=== PATIENT | male | born 1975 | race Two or more races ===

== ENCOUNTER 2017-03-03 09:36 | Emergency (ER) | payer OTHER ==
[~2017-03-03] VITALS: Ht 167.6 cm; Wt 81.6 kg
[2017-03-03] MEDS ORDERED: GABAPENTIN100 MG ORAL (09:49)
[2017-03-03 10:09] VITALS: BP 115/80
[2017-03-03 10:17] LABS: BASOPHILS % (AUTO) 1.1 % (0.0-2.0); EOSINOPHILS % (AUTO) 1.2 % (0.0-3.0); LYMPHOCYTES % (AUTO) 36.1 % (20.0-45.0); MEAN CORPUSCULAR HEMOGLOBIN 34.7 PG (27.0-31.0); MEAN CORPUSCULAR HGB CONC 33.8 G/DL (32.0-36.0); MEAN CORPUSCULAR VOLUME 103 FL (80-99); MEAN PLATELET VOLUME 6.7 FL (6.5-10.1); MONOCYTES % (AUTO) 12.4 % (1.0-10.0); NEUTROPHILS % (AUTO) 49.2 % (45.0-75.0); PLATELET COUNT 138 K/UL (150-450); RED BLOOD COUNT 4.25 M/UL (4.70-6.10); RED CELL DISTRIBUTION WIDTH 11.3 % (11.6-14.8); WHITE BLOOD COUNT 4.9 K/UL (4.8-10.8)
[2017-03-03 10:24] LABS: ACETAMINOPHEN < 10 ug/mL (10-30); ALANINE AMINOTRANSFERASE 48 U/L (3-41); ALBUMIN/GLOBULIN RATIO 1.3 (1.0-2.7); ANION GAP 11 (5-15); ASPARTATE AMINO TRANSFERASE 72 U/L (5-40); CALCIUM 8.8 mg/dL (8.6-10.2); CARBON DIOXIDE 28 mEQ/L (20-30); CHLORIDE 103 mEQ/L (98-107); CREATININE 0.7 mg/dL (0.7-1.2); GLOMERULAR FILTRATION RATE > 60 mL/min (>60); HEMOLYSIS 130; POTASSIUM 4.5 mEQ/L (3.4-4.9); SODIUM 142 mEQ/L (135-145); TOTAL PROTEIN 7.5 g/dL (6.6-8.7)
--- NOTE | 2017-03-03 10:24 | Diagnostic Imaging Report ---
Indication: Cough Technique: One view of the chest Comparison: none Findings: Suboptimal inspiration. The heart is upper limits of normal in size. The aorta is tortuous. Upper mediastinum is unremarkable. Atelectatic bands are seen at both lung bases. Impression: Bilateral basilar atelectasis. No acute process otherwise
[2017-03-03 10:31] LABS: ALCOHOL 479 mg/dL
--- NOTE | 2017-03-03 10:35 | Emergency Room Report ---
History of Present Illness General Chief Complaint: Altered Level of Consciousness Source: EMS Present Illness HPI Patient was found on the street unresponsive History of present illness is significantly limited Upon arrival patient has responds to physical stimuli however not verbal There was no reports of vomiting or blood at the scene Paramedics report getting the patient outside of a pharmacy facility Allergies: Coded Allergies: UNABLE TO ASSESS (Unverified , 03/03/17) Patient History Limited by: medical condition Past Medical History: see triage record Pertinent Family History: unable to obtain Reviewed Nursing Documentation: PMH: Agreed, PSxH: Agreed Nursing Documentation-PMH Past Medical History: No History, Except For Hx Hypertension: Yes History Of Psychiatric Problem: Yes Review of Systems All Other Systems: limited - Other than the ones mentioned in the history of present illness all others are reviewed however they do stay limited due to the patient's mental status Physical Exam Vital Signs Date Time Temp Pulse Resp B/P (MAP) Pulse Ox O2 Delivery O2 Flow Rate FiO2 03/03/17 09:39 97.3 101 16 127/86 95 Room Air Sp02 EP Interpretation: reviewed, normal General Appearance: no apparent distress Head: normocephalic, atraumatic Eyes: bilateral eye PERRL, bilateral eye EOMI ENT: normal pharynx, TMs + canals normal, uvula midline Neck: supple, no meningismus, no bony tend Respiratory: lungs clear, normal breath sounds, no rhonchi, no respiratory distress, no retraction, no accessory muscle use Cardiovascular #1: normal peripheral pulses, regular rate, rhythm, no edema, no gallop, no JVD, no murmur Gastrointestinal: normal bowel sounds, non tender, soft, no mass, no organomegaly, non-distended, no guarding, no hernia, no pulsatile mass, no rebound Genitourinary: no CVA tenderness Musculoskeletal: other - No obvious focal deficit however the patient is not following commands upon arrival Neurologic: responsive - To physical stimuli, patient started to make moaning sounds later in the stay, sensory intact Psychiatric: mood/affect normal Skin: other - hematoma as above Lymphatic: normal inspection, no adenopathy Medical Decision Making Labs Test 03/03/17 10:00 03/03/17 10:06 White Blood Count 4.9 K/UL (4.8-10.8) Red Blood Count 4.25 M/UL (4.70-6.10) Hemoglobin 14.8 G/DL (14.2-18.0) Hematocrit 43.6 % (42.0-52.0) Mean Corpuscular Volume 103 FL (80-99) Mean Corpuscular Hemoglobin 34.7 PG (27.0-31.0) Mean Corpuscular Hemoglobin Concent 33.8 G/DL (32.0-36.0) Red Cell Distribution Width 11.3 % (11.6-14.8) Platelet Count 138 K/UL (150-450) Mean Platelet Volume 6.7 FL (6.5-10.1) Neutrophils (%) (Auto) 49.2 % (45.0-75.0) Lymphocytes (%) (Auto) 36.1 % (20.0-45.0) Monocytes (%) (Auto) 12.4 % (1.0-10.0) Eosinophils (%) (Auto) 1.2 % (0.0-3.0) Basophils (%) (Auto) 1.1 % (0.0-2.0) Sodium Level 142 mEQ/L (135-145) Potassium Level 4.5 mEQ/L (3.4-4.9) Chloride Level 103 mEQ/L (98-107) Carbon Dioxide Level 28 mEQ/L (20-30) Anion Gap 11 (5-15) Blood Urea Nitrogen 11 mg/dL (7-23) Creatinine 0.7 mg/dL (0.7-1.2) Estimat Glomerular Filtration Rate > 60 mL/min (>60) Glucose Level 110 mg/dL (74-106) Calcium Level 8.8 mg/dL (8.6-10.2) Total Bilirubin < 0.2 mg/dL (0.0-1.2) Aspartate Amino Transf (AST/SGOT) 72 U/L (5-40) Alanine Aminotransferase (ALT/SGPT) 48 U/L (3-41) Alkaline Phosphatase 105 U/L (40-129) Total Protein 7.5 g/dL (6.6-8.7) Albumin 4.3 g/dL (3.5-5.2) Globulin 3.2 g/dL Albumin/Globulin Ratio 1.3 (1.0-2.7) Salicylates Level < 1 mg/dL (10-30) Acetaminophen Level < 10 ug/mL (10-30) Serum Alcohol 479 mg/dL Urine Opiates Screen Negative (NEGATIVE) Urine Barbiturates Screen Negative (NEGATIVE) Phencyclidine (PCP) Screen Negative (NEGATIVE) Urine Amphetamines Screen Negative (NEGATIVE) Urine Benzodiazepines Screen Negative (NEGATIVE) Urine Cocaine Screen Negative (NEGATIVE) Urine Marijuana (THC) Screen Negative (NEGATIVE) Last Vital Signs Date Time Temp Pulse Resp B/P (MAP) Pulse Ox O2 Delivery O2 Flow Rate FiO2 03/03/17 10:09 82 12 115/80 99 Room Air 03/03/17 09:39 97.3 JED BAKER D.O. Mar 03, 2017 10:35
[2017-03-03 10:46] VITALS: BP 97/56
--- NOTE | 2017-03-03 10:54 | Diagnostic Imaging Report ---
Indications: Altered level of consciousness Technique: Spiral acquisitions obtained through the brain. Angled axial and coronal 5 x 5 mm slices were reconstructed. Total dose length product 1390 mGycm. CTDI vol(s) 70 mGy. Dose reduction achieved using automated exposure control Comparison: None Findings: There is mild prominence of the frontal and parietal convexity extra-axial CSF spaces, somewhat striking for age. Normal size ventricles. No acute hemorrhage or edema. No mass effect or midline shift. Normal haro-white differentiation. Intact calvarium. Visualized orbits and sinuses are unremarkable. Impression: Mild frontal and parietal volume loss, somewhat striking for age Negative for acute intracranial bleed or mass effect The CT scanner at [facility] is accredited by the [employer] and the scans are performed using protocols designed to limit radiation exposure to as low as reasonably achievable to attain images of sufficient resolution adequate for diagnostic evaluation.
[2017-03-03 13:02] VITALS: BP 100/60
[2017-03-03 17:25] VITALS: BP 95/54
[2017-03-03] MEDS ORDERED: LIBRIUM25 MG ORAL (17:49)
[2017-03-03] MEDS ORDERED: chlordiazePOXIDE 25mg Cap ORAL ONE (18:00)
[2017-03-03 18:23] VITALS: BP 101/59
== END 2017-03-03 18:23 | disposition home or self-care (01) ==
LOC: EDBD 09:36 → EMR 10:34
DX: R41.82 Altered mental status, unspecified (principal); I10 Essential (primary) hypertension; J98.11 Atelectasis; R05 Cough
CPT/HCPCS: 36415; 70450; 71010; 80053; 80300; 80329; 85025; 96361; 96374; 99284

== ENCOUNTER 2017-03-04 01:19 | Emergency (ER) | payer OTHER ==
[~2017-03-04] VITALS: Ht 167.6 cm; Wt 74.8 kg
[~2017-03-04 01:19] MED LIST: GABAPENTIN100 MG ORAL; LIBRIUM25 MG ORAL
[2017-03-04 04:35] VITALS: BP 116/78
--- NOTE | 2017-03-04 06:54 | Emergency Room Report ---
History of Present Illness General Chief Complaint: Alcohol Intoxication Source: EMS (Eryn Ugarte M.D.) Source: Patient (JULIETTE PATRICIA M.D.) Present Illness HPI 41YOM BIBEMS for public intoxication Was just DCed here earlier also for ETOH Left ED when sober, got drunk again Denies trauma Denies other drug use Otherwise not participating in HPI, intermittently verbally abusive with staff but able to be calm down Asking for food, juice (JULIETTE PATRICIA M.D.) Allergies: Coded Allergies: No Known Allergies (Unverified , 03/03/17) Patient History Past Medical History: none Past Surgical History: none Pertinent Family History: none Social History: Reports: alcohol use Reviewed Nursing Documentation: PMH: Agreed, PSxH: Agreed (JULIETTE PATRICIA M.D.) Nursing Documentation-PMH Past Medical History: No Stated History Hx Dialysis: Yes - [facility] (Eryn Ugarte M.D.) Review of Systems All Other Systems: negative except mentioned in HPI (JULIETTE PATRICIA M.D.) Physical Exam Vital Signs Date Time Temp Pulse Resp B/P (MAP) Pulse Ox O2 Delivery O2 Flow Rate FiO2 03/04/17 01:12 98.1 98 16 122/82 97 Room Air (Eryn Ugarte M.D.) Sp02 EP Interpretation: reviewed, normal General Appearance: normal inspection, well appearing, no apparent distress, alert, GCS 15, non-toxic, other - +AOB Head: normocephalic, atraumatic Eyes: bilateral eye PERRL, bilateral eye EOMI ENT: normal ENT inspection, hearing grossly normal, normal voice Neck: normal inspection, full range of motion, supple, no bony tend Respiratory: normal inspection, lungs clear, normal breath sounds, no respiratory distress, no retraction, no wheezing Cardiovascular #1: regular rate, rhythm, no edema Gastrointestinal: normal inspection, normal bowel sounds, non tender, soft, no guarding, no hernia Genitourinary: no CVA tenderness Musculoskeletal: normal inspection, back normal, normal range of motion, Kerri' s Sign negative Neurologic: normal inspection, alert, oriented x3, responsive, production floater III-XII nml as tested, speech normal Psychiatric: normal inspection, judgement/insight normal, mood/affect normal Skin: normal inspection, normal color, no rash Lymphatic: normal inspection (JULIETTE PATRICIA M.D.) Medical Decision Making Diagnostic Impression: Primary Impression: Acute alcoholic intoxication Qualified Codes: F10.929 - Alcohol use, unspecified with intoxication, unspecified ER Course Received signout 41-year-old male alcohol intoxication alcohol >400 Patient currently resting comfortably, still intoxicated, unable to ambulate pending sobriety Patient ambulated with staff without difficulty, now clinically sober, to be discharged home safely. Family picked up patient (Eryn Ugarte M.D.) ER Course Observed overnight for multiple hours ETOH intoxication Slept all night Still intox at signout to Dr Ugarte at 630am (JULIETTE PATRICIA M.D.) Last Vital Signs Date Time Temp Pulse Resp B/P (MAP) Pulse Ox O2 Delivery O2 Flow Rate FiO2 03/04/17 01:12 98.1 98 16 122/82 97 Room Air (Eryn Ugarte M.D.) Status: improved (JULIETTE PATRICAI M.D.) Disposition: HOME, SELF-CARE Referrals: [facility],REFERRING (PCP) Eryn Ugarte M.D. Mar 04, 2017 06:54 JULIETTE PATRICIA M.D. Mar 04, 2017 23:41
[2017-03-04 09:55] VITALS: BP 119/73
[2017-03-04 10:29] VITALS: BP 119/73
== END 2017-03-04 10:33 | disposition home or self-care (01) ==
LOC: EDBD 01:19 → EMR 01:43
DX: F10.929 Alcohol use, unspecified with intoxication, unspecified (principal); N17.9 Acute kidney failure, unspecified; Z99.2 Dependence on renal dialysis
CPT/HCPCS: 99284

== ENCOUNTER 2017-03-12 18:57 | Emergency (ER) | payer SELFPAY ==
[~2017-03-12] VITALS: Ht 180.3 cm; Wt 77.1 kg
[2017-03-12 18:47] VITALS: BP 118/69
[2017-03-12 20:37] VITALS: BP 118/69
--- NOTE | 2017-03-13 14:24 | Emergency Room Report ---
History of Present Illness General Chief Complaint: Alcohol Intoxication Source: Patient, EMS Present Illness HPI 41YOM BIBEMS from [facility] for observed ETOH intoxication EMS deny signs of trauma at scene Patient has no complaints Well known to ED staff for almost-daily visits here for ETOH intox Denies other drugs Asking for sandwich, water Allergies: Coded Allergies: No Known Allergies (Unverified , 03/03/17) Patient History Past Medical History: none Past Surgical History: none Pertinent Family History: none Social History: Reports: alcohol use Immunizations: UTD Reviewed Nursing Documentation: PMH: Agreed, PSxH: Agreed Nursing Documentation-PMH Hx Dialysis: Yes - [facility] Review of Systems All Other Systems: negative except mentioned in HPI Physical Exam Vital Signs Date Time Temp Pulse Resp B/P (MAP) Pulse Ox O2 Delivery O2 Flow Rate FiO2 03/12/17 18:38 97.3 83 18 115/67 97 Room Air Sp02 EP Interpretation: reviewed, normal General Appearance: normal inspection, well appearing, alert, non-toxic, other - disheveled, +AOB Head: normocephalic, atraumatic Eyes: bilateral eye PERRL, bilateral eye EOMI ENT: normal ENT inspection, hearing grossly normal, normal pharynx, no angioedema, normal voice Neck: normal inspection, full range of motion, supple, no bony tend Respiratory: normal inspection, lungs clear, normal breath sounds, no respiratory distress, no retraction, no wheezing Cardiovascular #1: regular rate, rhythm, no edema Gastrointestinal: normal inspection, normal bowel sounds, non tender, soft, no guarding, no hernia Genitourinary: no CVA tenderness Musculoskeletal: normal inspection, back normal, normal range of motion, Kerri' s Sign negative Neurologic: normal inspection, alert, oriented x3, responsive, catapult and arresting gear officer III-XII nml as tested, motor strength/tone normal, speech normal Psychiatric: normal inspection, judgement/insight normal, mood/affect normal Skin: normal inspection, normal color, no rash Lymphatic: normal inspection Medical Decision Making Diagnostic Impression: Primary Impression: Alcohol intoxication Qualified Codes: F10.920 - Alcohol use, unspecified with intoxication, uncomplicated ER Course Acute ETOH intoxication VSS. Afebrile Atraumatic Was observed in ED until sober Ate two sandwiches Is walking around ER with steady gait DC home Last Vital Signs Date Time Temp Pulse Resp B/P (MAP) Pulse Ox O2 Delivery O2 Flow Rate FiO2 03/12/17 20:37 97.2 87 15 118/69 98 Room Air Status: improved Disposition: HOME, SELF-CARE Condition: Improved Referrals: NOT CHOSEN [facility]/,REFERRING (PCP) Patient Instructions: Alcohol Intoxication JULIETTE PATRICIA M.D. Mar 13, 2017 14:24
== END 2017-03-13 01:57 | disposition home or self-care (01) ==
LOC: EDBD 18:57 → EMR 03-13 01:53
DX: F10.129 Alcohol abuse with intoxication, unspecified (principal)
CPT/HCPCS: 99283

== ENCOUNTER 2017-10-06 02:36 | Emergency (ER) | payer SELFPAY, OTHER ==
[~2017-10-06] VITALS: Ht 167.6 cm; Wt 65.8 kg
[~2017-10-06 02:36] MED LIST changes: +UNOBMED
--- NOTE | 2017-10-06 03:11 | Emergency Room Report ---
History of Present Illness General Chief Complaint: Medical Clearance Source: Patient, Medical Record Present Illness HPI Is a 42-year-old male brought in by police for medical clearance. He was arrested for outstanding warrant. He complaining of dysuria. He said he has a kidney infection. He was at [place] yesterday and received prescription for doxycycline. He said he still having dysuria. No back pain. No nausea no vomiting. No fever or chills. No other complaint. Allergies: Coded Allergies: No Known Allergies (Unverified , 03/03/17) Patient History Past Medical History: see triage record, old chart reviewed Past Surgical History: other Pertinent Family History: other Social History: Reports: alcohol use; Denies: smoking Immunizations: other Reviewed Nursing Documentation: PMH: Agreed; PSxH: Agreed Nursing Documentation-PMH Hx Dialysis: Yes - [facility] Review of Systems Eye: Denies: eye pain, blurred vision ENT: Denies: ear pain, nose congestion, throat swelling Respiratory: Denies: cough, shortness of breath Cardiovascular: Denies: chest pain, palpitations Gastrointestinal: Denies: abdominal pain, diarrhea, nausea, vomiting Genitourinary: Reports: dysuria Musculoskeletal: Denies: back pain, joint pain Skin: Denies: rash Neurological: Denies: headache, numbness Endocrine: Denies: increased thirst, increased urine Hematologic/Lymphatic: Denies: easy bruising All Other Systems: negative except mentioned in HPI Physical Exam Vital Signs Date Time Temp Pulse Resp B/P (MAP) Pulse Ox O2 Delivery O2 Flow Rate FiO2 10/06/17 02:40 98.1 88 18 142/72 98 Room Air 98.1 vitals normal Sp02 EP Interpretation: reviewed, normal General Appearance: well appearing, no apparent distress, alert Head: normocephalic, atraumatic Eyes: bilateral eye PERRL, bilateral eye EOMI ENT: hearing grossly normal, normal pharynx Neck: full range of motion, supple, no meningismus Respiratory: chest non-tender, lungs clear, normal breath sounds Cardiovascular #1: regular rate, rhythm, no murmur Gastrointestinal: normal bowel sounds, non tender, no mass, no organomegaly, no bruit, non-distended Musculoskeletal: back normal, gait/station normal, normal range of motion Psychiatric: mood/affect normal Skin: warm/dry Medical Decision Making Diagnostic Impression: Primary Impression: Dysuria ER Course Patient presents with dysuria with no clearcut infection. He is currently taking doxycycline. He is medically stable for discharge to police surgeon. Last Vital Signs Date Time Temp Pulse Resp B/P (MAP) Pulse Ox O2 Delivery O2 Flow Rate FiO2 10/06/17 02:40 98.1 88 18 142/72 98 Room Air 98.1 Status: unchanged Disposition: D/C TO [facility] [employer] IN [facility] Condition: Stable Referrals: [facility],REFERRING (PCP) Additional Instructions: Finish antibiotics. Follow-up your doctor in 7 days. Return of worse. BRIANNA DAS M.D. Oct 06, 2017 03:11
[2017-10-06 03:12] LABS: APPEARANCE,URINE CLEAR; BILIRUBIN, URINE NEGATIVE (NEGATIVE); COLOR,URINE PALE YELLOW; GLUCOSE, URINE (UA) NEGATIVE (NEGATIVE); KETONES,URINE NEGATIVE (NEGATIVE); LEUKOCYTE ESTERASE ,URINE NEGATIVE (NEGATIVE); NITRITE,URINE NEGATIVE (NEGATIVE); PH,URINE 5 (4.5-8.0); PROTEIN,URINE NEGATIVE (NEGATIVE); UROBILINOGEN,URINE NORMAL MG/DL (0.0-1.0)
[2017-10-06 03:26] VITALS: BP 136/84
[2017-10-06 03:28] VITALS: BP 136/84
== END 2017-10-06 03:28 ==
LOC: EMR 02:55
DX: R30.0 Dysuria (principal)
CPT/HCPCS: 81003; 99283